=== PATIENT | male | born 1935 | race Asian ===

== ENCOUNTER 2018-03-18 12:58 | Inpatient (IN) | payer MEDICARE ==
[~2018-03-18] VITALS: Ht 165.1 cm; Wt 72.6 kg
[2018-03-18] MEDS ORDERED: DOCU100C36 PO (13:21)
[2018-03-18] MEDS ORDERED: ATOR20TA PO (13:21)
[2018-03-18] MEDS ORDERED: ASPI81TA31 PO (13:21)
[2018-03-18] MEDS ORDERED: ESCI10TA PO (13:21)
[2018-03-18] MEDS ORDERED: MELA5TAB PO (13:21)
[2018-03-18] MEDS ORDERED: QUET25TA PO (13:21)
[2018-03-18] MEDS ORDERED: GUAI118S76 PO (13:21)
[2018-03-18] MEDS ORDERED: IV NORMAL SALINE 1000 ML BAG IV ONE (13:30)
--- NOTE | 2018-03-18 13:35 | NUR ---
PT A/OX1, PRESENTS TO THE ER W/ AN LITIGATION ATTORNEY ASSOCIATE FROM PT'S SHELTER. PER STAFF'S REPORT, PT HAS A HX OF DEMENTIA BUT HAS BEEN INCREASINGLY CONFUSED THE LAST COUPLE OF DAYS. PT IS ABLE TO FOLLOW DIRECTIONS, BUT IS A/O TO PERSON ONLY. VSS. PT DENIES PAIN, C/P, SOB, N/V/D, DIZZINESS, HEADACHE.
[2018-03-18 13:39] LABS: BASOPHILS % (AUTO) 0.5 % (0.0-2.0); EOSINOPHILS # (AUTO) 0.1 K/uL (0.0-0.7); EOSINOPHILS % (AUTO) 1.2 % (0.0-7.0); HEMATOCRIT 45.4 % (36.7-47.1); HEMOGLOBIN 15.2 g/dL (12.5-16.3); LYMPHOCYTES # (AUTO) 1.3 K/uL (20.0-40.0); LYMPHOCYTES % (AUTO) 28.6 % (20.5-51.5); MEAN CORPUSCULAR HEMOGLOBIN 31.1 uug (23.8-33.4); MEAN CORPUSCULAR HGB CONC 34 g/dL (32.5-36.3); MEAN CORPUSCULAR VOLUME 92.8 fL (73.0-96.2); MONOCYTES # (AUTO) 0.4 K/uL (2.0-10.0); MONOCYTES % (AUTO) 8.4 % (0.0-11.0); NEUTROPHILS # (AUTO) 2.9 K/uL (1.8-8.9); NEUTROPHILS % (AUTO) 61.3 % (38.5-71.5); PLATELET COUNT (AUTO) 115 K/uL (152-348); RED BLOOD CELL COUNT(AUTO) 4.89 MIL/uL (4.06-5.63); WHITE BLOOD COUNT (AUTO) 4.7 K/uL (3.6-10.2)
[2018-03-18 13:45] LABS: CARBON DIOXIDE 31 mmol/L (21-32); CHLORIDE 103 mmol/L (98-107); CREATININE 0.9 mg/dL (0.6-1.3); GLUCOSE 112 mg/dL (74-106); POTASSIUM 4.1 mmol/L (3.5-5.1); UREA NITROGEN, BLOOD 16 mg/dL (7-18)
--- NOTE | 2018-03-18 13:47 | NUR ---
PT TAKEN TO RADIOLOGY FOR CT SCAN.
[2018-03-18 13:51] LABS: ALANINE AMINOTRANSFERASE 32 U/L (16-63); ALKALINE PHOSPHATASE 66 U/L (50-136); ASPARTATE AMINOTRANSFERASE 24 U/L (15-37); BILIRUBIN,DIRECT 0.1 mg/dL (0.0-0.2); BILIRUBIN,TOTAL 0.3 mg/dL (0.2-1.0); TOTAL PROTEIN, SERUM 6.8 g/dL (6.4-8.2)
[2018-03-18 14:00] LABS: THYROID STIMULATING HORMONE 2.469 mIU/mL (0.358-3.740)
--- NOTE | 2018-03-18 14:05 | NUR ---
PT BACK IN ER FROM RADIOLOGY.
--- NOTE | 2018-03-18 14:36 | NUR ---
IN AND OUT CATH - 600 ML URINE OUTPUT.
[2018-03-18] MEDS ORDERED: CEFTRIAXONE 1 G in IV DEXTROSE 5% 50 ML IV ONE (14:45)
[2018-03-18] MEDS ORDERED: AZITHROMYCIN IV 500 MG in IV DEXTROSE 5% 250 ML IV ONE (14:45)
[2018-03-18 14:47] LABS: *BILIRUBIN,URIN NEGATIVE (NEGATIVE); *BLOOD, URINE NEGATIVE (NEGATIVE); *CLARITY,URINE CLEAR (CLEAR); *COLOR,URINE YELLOW (YELLOW); *KETONES,URINE NEGATIVE (NEGATIVE); LEUKOCYTE ESTERASE ,URINE NEGATIVE (NEGATIVE); NITRITE, URINE NEGATIVE (NEGATIVE); PH,URINE 6.5 (5.0-8.0); UGLUCOSE NEGATIVE (NEGATIVE)
[2018-03-18 14:56] LABS: MUCUS,URINE MODERATE /LPF (0-FEW); RBC,URINE 0-3 /HPF (0-3); WBC,URINE NONE SEEN /HPF (0-3)
[2018-03-18] MEDS ORDERED: CEFTRIAXONE 1 G VIAL ONE (14:57)
[2018-03-18] MEDS ORDERED: AZITHROMYCIN 500 MG VIAL IV ONE (14:57)
--- NOTE | 2018-03-18 15:20 | NUR ---
ER SPOKE W/ DR. SORIA RE PT'S ADMISSION.
--- NOTE | 2018-03-18 15:38 | NUR ---
ADMITTING REPORT GIVEN TO TANO PEPPER.
--- NOTE | 2018-03-18 16:25 | NUR ---
Pt. admitted to TELE 214, under care of Dr. SORIA. Belongs List completed
[2018-03-18 16:47] VITALS: BP 162/96
--- NOTE | 2018-03-18 17:47 | NUR ---
Patient arrived on unit at 1630 from ER via hospital bed for diagnosis of pneumonia and altered mental status, alert and oriented 2-3, burmese speaking, can understand simple commands in [place], scarred raised bumps noted to left inner thigh, pictures taken and placed in chart, Vitals as follows: 162/96, 65 pulse, 98.6 axillary temperature, Patient noted removing IV, Telemetry box and taking clothes off, bed alarm in place, all needs met at this time
[2018-03-18] MEDS: DOCUSATE SODIUM 100 MG CAPSULE PO SCH (18:24)
[2018-03-18] MEDS ORDERED: MAGNESIUM HYDROXIDE 30 ML LIQUID UDC PO PRN (18:45)
[2018-03-18] MEDS ORDERED: ONDANSETRON 4 MG/2 ML VIAL IV PRN (18:45)
[2018-03-18] MEDS ORDERED: Z GUARD REMEDY PASTE 57 GM TUBE TOP PRN (18:45)
[2018-03-18] MEDS ORDERED: ACETAMINOPHEN 325 MG TABLET PO PRN (18:45)
[2018-03-18] MEDS ORDERED: HYDROCODONE/APAP 5-325MG TABLET PO PRN (18:45)
[2018-03-18 19:00] VITALS: BP 123/70
--- NOTE | 2018-03-18 19:25 | NUR ---
RECEIVED PT AWAKE, ON BAD. PT SHOWS NO SIGNS OF ACUTE DISTRESS. PT WITH NO IV ACCESS. PT TAKING OFF HIS CLOTHES. HEART MONITOR WAS TAKEN OFF BY THE PT. CALL LIGHT WITHIN REACH. BED ALARM ON. SAFETY AND COMFORT PROVIDED. WILL CONTINUE TO MONITOR.
[2018-03-18] MEDS: ATORVASTATIN 20 MG TABLET PO SCH (20:01)
[2018-03-18] MEDS: QUETIAPINE FUMARATE 25 MG TABLET PO SCH (20:01)
[2018-03-18] MEDS ORDERED: Medication Not On Formulary EA (Melatonin 5 MG) PO SCH (21:00)
[2018-03-19] VITALS: BP 122/81
--- NOTE | 2018-03-19 01:47 | NUR ---
THREE DIMENSIONAL ART INSTRUCTOR ( MADDI JACK NP) ORDERED ATIVAN 1MG ONETIME IV . PT RESTLESS, TAKING HIS CLOTHES OFF, THROWING HIS PILLOWS AND TAKING OFF HIS HEART MONITOR. SAFETY AND COMFORT PROVIDED. WILL CONTINUE TO MONITOR.
[2018-03-19] MEDS ORDERED: LORAZEPAM 2 MG/1 ML VIAL IV ONE (02:30)
[2018-03-19 04:22] VITALS: BP 133/71
--- NOTE | 2018-03-19 06:14 | NUR ---
PT SLEPT INTERMITTENTLY. PT SHOWS NO SIGNS OF ACUTE DISTRESS. SITTER AT BEDSIDE FOR SAFETY.PRESCRIBED MEDICATION GIVEN AND PT TOLERATED IT WELL.PT RESTLESS. PT THROWING HIS PILLOWS AND TAKING OFF HIS CLOTHES AND HIS HEART MONITOR AND IV.PT RIGHT HAND INFILTRATED. ELEVATED THE HAND AND PUT ICE TO DECREASE SWELLING. CALL LIGHT WITHIN REACH. BED ALARM. SAFETY AND COMFORT PROVIDED. ALL NEEDS ARE MET.WILL ENDORSE ACCORDINGLY TO INCOMING NURSE FOR CONTINUITY OF CARE.
[2018-03-19 06:16] LABS: BASOPHILS % (AUTO) 0.6 % (0.0-2.0); EOSINOPHILS # (AUTO) 0.1 K/uL (0.0-0.7); EOSINOPHILS % (AUTO) 1.7 % (0.0-7.0); HEMATOCRIT 42.5 % (36.7-47.1); LYMPHOCYTES # (AUTO) 1.6 K/uL (20.0-40.0); LYMPHOCYTES % (AUTO) 30.4 % (20.5-51.5); MEAN CORPUSCULAR HEMOGLOBIN 30.6 uug (23.8-33.4); MEAN CORPUSCULAR HGB CONC 33 g/dL (32.5-36.3); MEAN CORPUSCULAR VOLUME 92.6 fL (73.0-96.2); MONOCYTES # (AUTO) 0.5 K/uL (2.0-10.0); MONOCYTES % (AUTO) 9.5 % (0.0-11.0); NEUTROPHILS # (AUTO) 3.1 K/uL (1.8-8.9); NEUTROPHILS % (AUTO) 57.8 % (38.5-71.5); PLATELET COUNT (AUTO) 112 K/uL (152-348); RED BLOOD CELL COUNT(AUTO) 4.59 MIL/uL (4.06-5.63); WHITE BLOOD COUNT (AUTO) 5.4 K/uL (3.6-10.2)
[2018-03-19 06:30] LABS: ALANINE AMINOTRANSFERASE 28 U/L (16-63); ALKALINE PHOSPHATASE 54 U/L (50-136); ASPARTATE AMINOTRANSFERASE 23 U/L (15-37); BILIRUBIN,DIRECT 0.1 mg/dL (0.0-0.2); BILIRUBIN,TOTAL 0.3 mg/dL (0.2-1.0); CARBON DIOXIDE 28 mmol/L (21-32); CHLORIDE 106 mmol/L (98-107); CHOLESTEROL 93 mg/dL (<200); CREATININE 0.8 mg/dL (0.6-1.3); GLUCOSE 89 mg/dL (74-106); HDL CHOLESTEROL 34 mg/dL (40-60); MAGNESIUM 2.1 mg/dL (1.8-2.4); PHOSPHOROUS 3.5 mg/dL (2.5-4.9); POTASSIUM 3.9 mmol/L (3.5-5.1); TOTAL PROTEIN, SERUM 6.1 g/dL (6.4-8.2); TRIGLYCERIDES 100 MG/DL (30-150); UREA NITROGEN, BLOOD 16 mg/dL (7-18)
[2018-03-19] MEDS: IV NS 1000 ML 1,000 ML IV PRN (06:41)
[2018-03-19] MEDS: DOCUSATE SODIUM 100 MG CAPSULE PO SCH ×2 (08:53→18:53)
[2018-03-19] MEDS: ASPIRIN 81 MG TAB.CHEW PO SCH (08:53)
[2018-03-19] MEDS: ESCITALOPRAM OXALATE 10 MG TABLET PO SCH (08:53)
[2018-03-19 12:12] VITALS: BP 132/81
--- NOTE | 2018-03-19 13:43 | NUR ---
WOUND CARE CONSULT: PT SEEN FOR LEFT THIGH DRY LESIONS, UNKNOWN ETIOLOGY. DEFER TO MD. WILL SEE PRN.
[2018-03-19] MEDS: AZITHROMYCIN IV 500 MG in IV DEXTROSE 5% 250 ML IV SCH (14:22)
[2018-03-19] MEDS: CEFTRIAXONE 1 G in IV DEXTROSE 5% 50 ML IV SCH (16:00)
[2018-03-19] MEDS ORDERED: HALOPERIDOL LACTATE 5 MG/1 ML VIAL IM ONE (16:15)
[2018-03-19 19:00] VITALS: BP 140/73
--- NOTE | 2018-03-19 19:20 | NUR ---
RECEIVED PT AWAKE, ALERT, ORIENTEDX2. PT RESTLESS. SITTER AT BEDSIDE FOR SAFETY.SHOWS NO SIGNS OF ACUTE DISTRESS. IV INTACT. CALL LIGHT WITHIN REACH. SAFETY AND COMFORT PROVIDED. WILL CONTINUE TO MONITOR.
[2018-03-19] MEDS: ATORVASTATIN 20 MG TABLET PO SCH (20:40)
[2018-03-19] MEDS: QUETIAPINE FUMARATE 25 MG TABLET PO SCH (20:40)
[2018-03-19] MEDS: CULTURELLE CAPSULE PO SCH (20:41)
[2018-03-19] MEDS: MELATONIN 3 MG TABLET PO SCH (20:41)
[2018-03-20] MEDS: IV NS 1000 ML 1,000 ML IV PRN ×2 (02:53→19:04)
[2018-03-20 05:40] VITALS: BP 148/76
--- NOTE | 2018-03-20 05:57 | NUR ---
PT SLEPT INTERMITTENTLY. PT SHOWS NO SIGNS OF ACUTE DISTRESS. PRESCRIBED MEDICATION GIVEN AND PT TOLERATED IT WELL. SITTER AT BEDSIDE.PT TAKING OF HIS GOWN, TAKING OFF HIS IV. PT CONFUSED. NEED REORIENTATION. SAFETY PROVIDED.SAFETY AND COMFORT PROVIDED. ALL NEEDS ARE MET. WILL ENDORSE ACCORDINGLY TO INCOMING NURSE FOR CONTINUITY OF CARE.
[2018-03-20 08:19] VITALS: BP 164/79
[2018-03-20] MEDS: CULTURELLE CAPSULE PO SCH ×2 (08:20→20:30)
[2018-03-20] MEDS: ASPIRIN 81 MG TAB.CHEW PO SCH (08:20)
[2018-03-20] MEDS: ESCITALOPRAM OXALATE 10 MG TABLET PO SCH (08:20)
[2018-03-20] MEDS: DOCUSATE SODIUM 100 MG CAPSULE PO SCH ×2 (08:20→16:53)
--- NOTE | 2018-03-20 08:30 | NUR ---
DISCUSSED WITH [employer]INE [employer] TECHNICIAN DR SORIA, PATIENT CURRENTLY ON SEROQUEL 25MG AT NOON AND 75MG AT HS AT CURRENT FACILITY, DISCUSSED CURRENT MED ORDERS, VERBAL ORDERS RECEIVED TO ADJUST MEDICATIONS BACK TO FACILITY DOSE OF SEROQUEL. ORDERS READ BACK.
[2018-03-20 11:48] VITALS: BP 154/86
[2018-03-20] MEDS: QUETIAPINE FUMARATE 25 MG TABLET PO SCH ×2 (12:02→20:30)
[2018-03-20] MEDS: AZITHROMYCIN IV 500 MG in IV DEXTROSE 5% 250 ML IV SCH (13:30)
[2018-03-20] MEDS: CEFTRIAXONE 1 G in IV DEXTROSE 5% 50 ML IV SCH (16:00)
[2018-03-20 16:09] VITALS: BP 143/95
--- NOTE | 2018-03-20 17:20 | NUR ---
contacted patient facility, [facility], Spoke with Andrea, received updated history of patient, [facility]. patient [facility] soft diet with thicken liquids, history of stroke 3 years ago right sided residual. vascular dementia. will inform weblogic administrator recommend for Swallow Eval. continue to monitor.
--- NOTE | 2018-03-20 18:32 | NUR ---
patient anxious restless in bed frequent redirection needed. unable to safely obtain sputum specimen.
--- NOTE | 2018-03-20 19:34 | NUR ---
PATIENT RECIEVED WITH A SITTER AT BEDSIDE FOR SAFETY.
[2018-03-20 19:50] VITALS: BP 114/60
[2018-03-20] MEDS: MELATONIN 3 MG TABLET PO SCH (20:31)
[2018-03-20] MEDS: ATORVASTATIN 20 MG TABLET PO SCH (20:31)
--- NOTE | 2018-03-21 04:29 | NUR ---
awake and removed gown , milk of magnesia dose given for constipation. tolerated well.
[2018-03-21 04:55] VITALS: BP 132/89
--- NOTE | 2018-03-21 07:07 | NUR ---
PATIENT IS ASLEEP BUT AROUSABLE.WITH SITTER AT BEDSIDE FOR SAFETY
--- NOTE | 2018-03-21 08:15 | NUR ---
PATIENT'S IV ACCESS IS COMPROMISED. LINE IS PULLED OUT. WILL RESTART ON ANOTHER SITE. NO FLUIDS RUNNING.
[2018-03-21] MEDS: ESCITALOPRAM OXALATE 10 MG TABLET PO SCH (08:45)
[2018-03-21] MEDS: CULTURELLE CAPSULE PO SCH ×2 (08:45→20:59)
[2018-03-21] MEDS: ASPIRIN 81 MG TAB.CHEW PO SCH (08:45)
[2018-03-21] MEDS: DOCUSATE SODIUM 100 MG CAPSULE PO SCH ×2 (08:45→16:21)
[2018-03-21] MEDS: IV NS 1000 ML 1,000 ML IV PRN (08:53)
[2018-03-21] MEDS ORDERED: GUAIFENESIN/DEXTROMETHORPHAN 5 ML UDC PO PRN (09:45)
[2018-03-21 11:00] VITALS: BP 134/78
[2018-03-21] MEDS: QUETIAPINE FUMARATE 25 MG TABLET PO SCH ×2 (12:23→20:58)
[2018-03-21] MEDS: AZITHROMYCIN IV 500 MG in IV DEXTROSE 5% 250 ML IV SCH (14:09)
[2018-03-21] MEDS: CEFTRIAXONE 1 G in IV DEXTROSE 5% 50 ML IV SCH (15:18)
[2018-03-21 15:21] VITALS: BP 121/68
--- NOTE | 2018-03-21 16:22 | NUR ---
PATIENT HAD 3 BM THIS SHIFT, LOOSE STOOLS R/T MILK OF MAGNESIA GIVEN LAST SHIFT. HELD COLACE. 1700 DOSE.
--- NOTE | 2018-03-21 18:48 | NUR ---
PATIENT IS LYING IN BED WITH 1:1 SITTER AT BEDSIDE. BEDSIDE IS IN LOW LOCKED POSITION WITH CALL LIGHT IN REACH. PATIENT IS RUNNING NS AT 75 ON RIGHT HAND 20G. NO SIGNS OF DISTRESS NOTED.
[2018-03-21 20:37] VITALS: BP 140/78
[2018-03-21] MEDS: ATORVASTATIN 20 MG TABLET PO SCH (20:58)
[2018-03-21] MEDS: MELATONIN 3 MG TABLET PO SCH (20:59)
--- NOTE | 2018-03-22 01:37 | NUR ---
oral care not done as patient is asleep.with sitter at bedside
[2018-03-22] MEDS: IV NS 1000 ML 1,000 ML IV PRN (05:10)
[2018-03-22 05:37] VITALS: BP 122/78
--- NOTE | 2018-03-22 08:00 | NUR ---
PATIENT RECEIVED IN BED AWAKE ALERT COOPERATIVE WITH A SITTER AT THE BEDSIDE FOR SAFETY SEEMS QUIET AND CALM AT THIS TIME WITH NO AGGRESSIVE BEHAVIOR AT THIS TIME.MADE COMFORTABLE AND WILL CONTINUE TO OBSERVE.
[2018-03-22] MEDS: DOCUSATE SODIUM 100 MG CAPSULE PO SCH ×2 (08:47→17:08)
[2018-03-22] MEDS: CULTURELLE CAPSULE PO SCH (08:47)
[2018-03-22] MEDS: ESCITALOPRAM OXALATE 10 MG TABLET PO SCH (08:47)
[2018-03-22] MEDS: ASPIRIN 81 MG TAB.CHEW PO SCH (08:47)
--- NOTE | 2018-03-22 09:02 | NUR ---
PER DR SORIA AWAITING FOR THE SLT TO SEE PATIENT TO DETERMINE IF PATIENT IS READY FOR DISCHARGE TODAY.
[2018-03-22 11:31] VITALS: BP 134/87
--- NOTE | 2018-03-22 12:00 | NUR ---
PER THE SLT PATIENT IS SAFE FOR MECHANICAL SOFT DIET WITH NECTAR THICK LIQUIDS.
[2018-03-22] MEDS: QUETIAPINE FUMARATE 25 MG TABLET PO SCH (12:57)
[2018-03-22] MEDS ORDERED: AZITHROMYCIN 250 MG TABLET PO SCH (14:00)
[2018-03-22] MEDS: CEFTRIAXONE 1 G in IV DEXTROSE 5% 50 ML IV SCH (15:25)
--- NOTE | 2018-03-22 15:30 | NUR ---
ORDER TO DISCHARGE PATIENT TO [facility] RECEIVED AND CARRIED OUT PER THE PROCESS TRAINER PATIENTS AND DPOA AWARE AND AGREED
--- NOTE | 2018-03-22 17:38 | NUR ---
PATIENT DISCHARGED PICKED UP BY THE AMBULANCE WITH DISCHARGE INSTRUCTIONS AND ALL OF HIS PERSONAL BELONGINGS REPORT WAS CALLED TO MARK FOR CONTINUING CARE PATIENT TO CONTINUE ON ANTIBIOTICS ORDERED FOR 5 MORE DAYS AND HE EXPRESSED UNDERSTANDING.
== END 2018-03-22 17:38 | DRG 193 ==
LOC: ER 12:58 → TELE 16:10 → MED 03-19 10:35
PROVIDERS: ADMIT Internal Medicine; ATTEND Internal Medicine
DX: J15.9 Unspecified bacterial pneumonia (principal); G93.41 Metabolic encephalopathy; J98.11 Atelectasis; F03.90 Unspecified dementia, unspecified severity, without behavioral disturbance, psychotic disturbance, mood disturbance, and anxiety; Z79.82 Long term (current) use of aspirin; Z79.899 Other long term (current) drug therapy; E78.5 Hyperlipidemia, unspecified; Z86.73 Personal history of transient ischemic attack (TIA), and cerebral infarction without residual deficits; Z87.891 Personal history of nicotine dependence; I67.2 Cerebral atherosclerosis
CPT/HCPCS: 36415; 70030-TC; 70450; 71045; 83605; 83735; 84100; 84443; 85025; 85730; 87040; 87086; 92610; 93005; 97116; 97530; A4663; G0378; J0456; J0696; J1630; J2060; J7030; J7042; J7060; Q0144